=== PATIENT | male | born 1990 | race Hispanic/Latino ===

== ENCOUNTER 2019-11-29 06:57 | Emergency (ER) | payer OTHER, SELFPAY | END 2019-11-29 08:30 | disposition home or self-care (01) | LOC: ERS 06:57 | DX: J10.1 Influenza due to other identified influenza virus with other respiratory manifestations (principal) | CPT/HCPCS: 87804; 99281 ==

== ENCOUNTER 2019-11-30 15:33 | Emergency (ER) | payer SELFPAY | END 2019-11-30 17:08 | disposition home or self-care (01) | LOC: ERS 15:33 | DX: J11.1 Influenza due to unidentified influenza virus with other respiratory manifestations (principal) | CPT/HCPCS: 99281 ==

== ENCOUNTER 2021-08-29 11:53 | Outpatient (CLI) | payer BC | END 2021-08-29 11:54 | disposition home or self-care (01) | LOC: BICRAD 11:53 | PROVIDERS: ATTEND Family Medicine | DX: M54.9 Dorsalgia, unspecified (principal) | CPT/HCPCS: 72070; 72100 ==